=== PATIENT | male | born 1955 | race Caucasian/White ===

== ENCOUNTER 2020-11-13 14:47 | Outpatient (CLI) | payer MEDICARE ==
--- NOTE | 2020-11-13 15:21 | CT ---
CT LOW DOSE LUNG SCAN PERFORMED WITHOUT CONTRAST ENHANCEMENT: 11/13/20 HISTORY: Current one pack a day smoker for 40 years. The lungs show changes of centrilobular emphysema. No bronchiectatic change or definitive features of honeycombing seen. Small blebs are seen within the upper lobes. No pulmonary nodules identified. The re is no significant mediastinal adenopathy appreciated. Coronary calcifications are present. Visualized liver parenchyma is normal. IMPRESSION: Lung RADS category 1 - negative. Annual follow-up recommended. Lung RADS category S - this is given for the presence of emphysema and coronary calcification. POS: [facility]
== END 2020-11-13 14:48 | disposition home or self-care (01) ==
LOC: BICCT 14:47
PROVIDERS: ATTEND Internal Medicine
DX: Z12.2 Encounter for screening for malignant neoplasm of respiratory organs (principal); F17.210 Nicotine dependence, cigarettes, uncomplicated; J43.9 Emphysema, unspecified; I25.10 Atherosclerotic heart disease of native coronary artery without angina pectoris
CPT/HCPCS: G0297

== ENCOUNTER 2020-11-19 14:13 | Outpatient (CLI) | payer MEDICARE ==
[~2020-11-19 14:13] MED LIST: Magnevist 469MG/ML 20 ML VIAL ONE
--- NOTE | 2020-11-19 16:13 | MRI ---
Exam: MRI lumbar spine with and without contrast COMPARISON: 04/04/2015 HISTORY: Lumbar postlaminectomy syndrome. Low back pain with radiation down the left leg. Tingling in both lower extremities. Surgery 5 years ago. FINDINGS: Extensive fusion changes involving the lumbar spine. There are bilateral transpedicular screws at L2, L3, L4, L5 and S1. There is a disc prosthesis at L2-L3, L3-L4, L4-L5 and L5-S1. Anterior fusion hardware at L4-L5 and L5-S1 is identified. There is extensive metallic susceptibly artifact. Spondylolisthesis: Approximately 1 cm of anterolisthesis of L5 upon S1. There is appropriate signal intensity of the visualized paraspinal muscles and solid organs. Conus medullaris terminates at the superior aspect of L1. Postcontrast images do not demonstrate any abnormal enhancement with regards to the vertebral bodies. There is no abnormal enhancement within the thecal sac including the cauda equina and conus medullaris. No significant STIR hyperintensity to suggest ligamentous injury or vertebral body edema T12-L1: Disc desiccation without significant loss of disc space height. Minimal left right paracentra l disc herniations. No significant central canal stenosis. Patent bilateral neural foramina L1-L2: Disc desiccation without significant loss of disc space height. Broad-based disc bulge, ligame ntum flavum thickening and facet hypertrophy result in mild central canal stenosis. Mild bilateral neural foraminal narrowing due to uncovertebral hypertrophy and disc material. L2-L3: Disc prosthesis. No significant central canal stenosis. Mild bilateral neural foraminal narrow ing L3-L4: Disc prosthesis. No significant central canal stenosis. Right neural foramen is mildly narrowe d. Mild to moderate left neural foraminal narrowing L4-L5: Disc prosthesis. No significant central canal stenosis. Mild bilateral neural foraminal narrow ing L5-S1: Disc prosthesis. No significant central canal stenosis. Mild to moderate bilateral neural fora heri narrowing. There is bilateral facet hypertrophy. IMPRESSION: 1. Limited evaluation of the central spinal canal due to extensive metallic artifact from fusion villalba ges from L2 through L5. There is no evidence of significant central canal stenosis. Varying degrees of neural foramina as detailed above. 2. Grade 1 anterolisthesis of L5 upon S1. Transcribed Date/Time: 11/19/2020 4:20 PM
--- NOTE | 2020-11-19 16:14 | RAD ---
Exam: 2 views of lumbar spine COMPARISON: 04/04/2015 HISTORY: Lumbar radiculopathy. Pain. FINDINGS: 5 lumbar type vertebral bodies. There are bilateral transpedicular screws at L2, L3, L4, L5 and S1. T here are additional screws noted along the anterior inferior aspect of L4, L5 in the anterior superior aspect of S1. Disc prosthesis at L2-L3, L3-L4, L4-L5 and L5-S1. Evaluation the lumbosacral j unction is limited. MRI performed earlier today demonstrates anterolisthesis of L5 upon S1. With regard to the fusion hardware no evidence of perihardware lucency. Lumbar spine vertebral body height s are maintained. There is no fracture. IMPRESSION: Extensive lumbar fusion from L5 through S1. Transcribed Date/Time: 11/19/2020 4:22 PM
== END 2020-11-19 14:14 | disposition home or self-care (01) ==
LOC: BICMRI 14:13
PROVIDERS: ATTEND Family Medicine
DX: M96.1 Postlaminectomy syndrome, not elsewhere classified (principal); M51.16 Intervertebral disc disorders with radiculopathy, lumbar region; G89.4 Chronic pain syndrome; M51.9 Unspecified thoracic, thoracolumbar and lumbosacral intervertebral disc disorder; M48.062 Spinal stenosis, lumbar region with neurogenic claudication; M43.17 Spondylolisthesis, lumbosacral region; Z98.1 Arthrodesis status
CPT/HCPCS: 72100; 72158; 82565; A9579